=== PATIENT | female | born 1950 | race Caucasian/White ===

== ENCOUNTER 2017-06-17 21:48 | Inpatient (IN) | payer MEDICARE, MEDICAID ==
[~2017-06-17] VITALS: Ht 154.9 cm; Wt 67.6 kg
[2017-06-17] MEDS ORDERED: ATEN-171 PO (22:13)
[2017-06-17] MEDS ORDERED: MELA10TA3 PO (22:13)
[2017-06-17] MEDS ORDERED: HYDR5TAB PO (22:13)
[2017-06-17] MEDS ORDERED: METF500T6 PO (22:13)
[2017-06-17] MEDS ORDERED: MAGN100T6 PO (22:13)
[2017-06-17] MEDS ORDERED: METO200T49 PO (22:13)
[2017-06-17] MEDS ORDERED: VITAMIN D PO (22:13)
[2017-06-17] MEDS ORDERED: LEVO100T10 PO (22:13)
[2017-06-17] MEDS ORDERED: LORA1TAB PO (22:13)
[2017-06-17] MEDS ORDERED: AMIT10TA6 PO (22:13)
[2017-06-17] MEDS ORDERED: NAPR-1009 PO (22:13)
[2017-06-17] MEDS ORDERED: CYAN100T3 PO (22:13)
[2017-06-17] MEDS ORDERED: GABA-532 PO (22:13)
[2017-06-17] MEDS ORDERED: TRAZ-144 PO (22:13)
[2017-06-17 22:15] VITALS: BP 140/80
[2017-06-17] MEDS ORDERED: MAGNESIUM HYDROXIDE 30 ML LIQUID UDC PO PRN (22:45)
[2017-06-17] MEDS ORDERED: MAG HYDROX/AL HYDROX/SIMETH 30 ML LIQUID UDC PO PRN (22:45)
[2017-06-18] MEDS: LORAZEPAM 0.5 MG TABLET PO PRN ×3 (00:07→23:04)
[2017-06-18] MEDS: TEMAZEPAM 7.5 MG CAPSULE PO PRN ×2 (01:37→21:48)
[2017-06-18] MEDS: ACETAMINOPHEN 325 MG TABLET PO PRN ×2 (01:37→10:58)
[2017-06-18 07:30] VITALS: BP 135/74
[2017-06-18] MEDS ORDERED: NAPROXEN 500 MG TABLET PO PRN (17:00)
[2017-06-18 17:34] VITALS: BP 128/65
[2017-06-18] MEDS ORDERED: METFORMIN HCL 500 MG TABLET PO SCH (18:00)
[2017-06-18 21:56] VITALS: BP 129/69
[2017-06-19 07:33] LABS: BASOPHILS # (AUTO) 0.1 K/uL (0.0-8.0); BASOPHILS % (AUTO) 0.7 % (0.0-2.0); EOSINOPHILS # (AUTO) 0.3 K/uL (0.0-0.7); EOSINOPHILS % (AUTO) 4.7 % (0.0-7.0); HEMATOCRIT 36.9 % (31.2-41.9); HEMOGLOBIN 12.3 g/dL (10.9-14.3); LYMPHOCYTES # (AUTO) 2.5 K/uL (20.0-40.0); LYMPHOCYTES % (AUTO) 33.6 % (20.5-51.5); MEAN CORPUSCULAR HEMOGLOBIN 28.6 uug (24.7-32.8); MEAN CORPUSCULAR HGB CONC 34 g/dL (32.3-35.6); MEAN CORPUSCULAR VOLUME 85.6 fL (75.5-95.3); MONOCYTES # (AUTO) 0.4 K/uL (2.0-10.0); MONOCYTES % (AUTO) 5.8 % (0.0-11.0); NEUTROPHILS # (AUTO) 4.1 K/uL (1.8-8.9); NEUTROPHILS % (AUTO) 55.2 % (38.5-71.5); PLATELET COUNT (AUTO) 247 K/uL (179-408); RED BLOOD CELL COUNT(AUTO) 4.31 MIL/uL (3.63-4.92); WHITE BLOOD COUNT (AUTO) 7.4 K/uL (3.8-11.8)
[2017-06-19 07:51] LABS: BILIRUBIN,TOTAL 0.3 mg/dL (0.2-1.0); CREATININE 0.7 mg/dL (0.6-1.3); MAGNESIUM 2.2 mg/dL (1.8-2.4); PHOSPHOROUS 4.8 mg/dL (2.5-4.9); POTASSIUM 3.8 mmol/L (3.5-5.1)
[2017-06-19] MEDS: LEVOTHYROXINE SODIUM 100 MCG TABLET PO SCH (07:52)
[2017-06-19 07:56] LABS: THYROID STIMULATING HORMONE 1.371 mIU/mL (0.358-3.740)
[2017-06-19 08:02] VITALS: BP 117/69
[2017-06-19] MEDS: GABAPENTIN 100 MG CAPSULE PO SCH (08:20)
[2017-06-19] MEDS: HYDROCORTISONE 10 MG TABLET PO SCH (08:21)
[2017-06-19] MEDS: CYANOCOBALAMIN 100 MCG TABLET PO SCH (08:27)
[2017-06-19] MEDS ORDERED: ATENOLOL 50 MG TABLET PO SCH (09:00)
[2017-06-19] MEDS: LORAZEPAM 0.5 MG TABLET PO PRN ×2 (10:20→18:04)
[2017-06-19] MEDS: SERTRALINE HCL 50 MG TABLET PO SCH (11:42)
[2017-06-19 15:52] VITALS: BP 113/71
[2017-06-19 20:34] VITALS: BP 121/72
[2017-06-19] MEDS: TEMAZEPAM 7.5 MG CAPSULE PO PRN (22:53)
[2017-06-20] MEDS: LORAZEPAM 0.5 MG TABLET PO PRN ×3 (00:15→23:49)
[2017-06-20] MEDS: ACETAMINOPHEN 325 MG TABLET PO PRN (02:54)
[2017-06-20] MEDS: LEVOTHYROXINE SODIUM 100 MCG TABLET PO SCH (06:49)
[2017-06-20 07:30] VITALS: BP 91/45
[2017-06-20] MEDS: GABAPENTIN 100 MG CAPSULE PO SCH (08:32)
[2017-06-20] MEDS: HYDROCORTISONE 10 MG TABLET PO SCH ×2 (08:33→21:00)
[2017-06-20] MEDS: SERTRALINE HCL 50 MG TABLET PO SCH (08:33)
[2017-06-20] MEDS: CYANOCOBALAMIN 100 MCG TABLET PO SCH (08:39)
[2017-06-20] MEDS: GLUCERNA SHAKE 237 ML CAN PO SCH ×2 (14:25→17:00)
[2017-06-20 15:09] VITALS: BP 123/66
[2017-06-20 20:16] VITALS: BP 114/72
[2017-06-21] MEDS: LEVOTHYROXINE SODIUM 100 MCG TABLET PO SCH (06:34)
[2017-06-21 07:30] VITALS: BP 115/66
[2017-06-21] MEDS: GLUCERNA SHAKE 237 ML CAN PO SCH (08:00)
[2017-06-21] MEDS: CYANOCOBALAMIN 100 MCG TABLET PO SCH (09:00)
[2017-06-21] MEDS: GABAPENTIN 100 MG CAPSULE PO SCH (09:01)
[2017-06-21] MEDS: HYDROCORTISONE 10 MG TABLET PO SCH ×2 (09:01→20:13)
[2017-06-21] MEDS: SERTRALINE HCL 50 MG TABLET PO SCH (09:02)
[2017-06-21 15:19] VITALS: BP 112/57
[2017-06-21 20:25] VITALS: BP 106/60
[2017-06-21] MEDS: LORAZEPAM 0.5 MG TABLET PO PRN (22:35)
[2017-06-22] MEDS: ACETAMINOPHEN 325 MG TABLET PO PRN (02:17)
[2017-06-22] MEDS: LEVOTHYROXINE SODIUM 100 MCG TABLET PO SCH (06:06)
[2017-06-22 07:30] VITALS: BP 135/79
[2017-06-22] MEDS: GABAPENTIN 100 MG CAPSULE PO SCH ×2 (08:09→12:49)
[2017-06-22] MEDS: HYDROCORTISONE 10 MG TABLET PO SCH ×2 (08:09→20:13)
[2017-06-22 08:15] LABS: BASOPHILS # (AUTO) 0.1 K/uL (0.0-8.0); BASOPHILS % (AUTO) 0.8 % (0.0-2.0); EOSINOPHILS # (AUTO) 0.1 K/uL (0.0-0.7); EOSINOPHILS % (AUTO) 1.6 % (0.0-7.0); HEMATOCRIT 38.9 % (31.2-41.9); HEMOGLOBIN 13.2 g/dL (10.9-14.3); LYMPHOCYTES # (AUTO) 2.4 K/uL (20.0-40.0); LYMPHOCYTES % (AUTO) 33.9 % (20.5-51.5); MEAN CORPUSCULAR HEMOGLOBIN 29.2 uug (24.7-32.8); MEAN CORPUSCULAR HGB CONC 34 g/dL (32.3-35.6); MEAN CORPUSCULAR VOLUME 85.7 fL (75.5-95.3); MONOCYTES # (AUTO) 0.5 K/uL (2.0-10.0); MONOCYTES % (AUTO) 6.6 % (0.0-11.0); NEUTROPHILS # (AUTO) 4.1 K/uL (1.8-8.9); NEUTROPHILS % (AUTO) 57.1 % (38.5-71.5); PLATELET COUNT (AUTO) 263 K/uL (179-408); RED BLOOD CELL COUNT(AUTO) 4.53 MIL/uL (3.63-4.92); WHITE BLOOD COUNT (AUTO) 7.1 K/uL (3.8-11.8)
[2017-06-22] MEDS: CYANOCOBALAMIN 100 MCG TABLET PO SCH (08:18)
[2017-06-22] MEDS: SERTRALINE HCL 50 MG TABLET PO SCH (08:18)
[2017-06-22 08:59] LABS: BILIRUBIN,TOTAL 0.5 mg/dL (0.2-1.0); CREATININE 0.8 mg/dL (0.6-1.3); MAGNESIUM 2.1 mg/dL (1.8-2.4); PHOSPHOROUS 4.3 mg/dL (2.5-4.9); POTASSIUM 3.6 mmol/L (3.5-5.1); TOTAL PROTEIN, SERUM 7.4 g/dL (6.4-8.2)
[2017-06-22] MEDS: risperiDONE 0.5 MG TABLET PO SCH ×2 (11:23→20:13)
[2017-06-22] MEDS: BENZTROPINE MESYLATE 0.5 MG TABLET PO SCH ×2 (11:23→16:26)
[2017-06-22 15:48] VITALS: BP 98/44
[2017-06-22] MEDS: NYSTATIN SUSPENSION 5 ML LIQUID UDC PO SCH ×2 (17:45→20:14)
[2017-06-22 20:00] VITALS: BP 116/59
[2017-06-22] MEDS: GABAPENTIN 300 MG CAPSULE PO SCH (20:22)
[2017-06-22] MEDS: LORAZEPAM 0.5 MG TABLET PO PRN (22:21)
[2017-06-23] MEDS: TEMAZEPAM 7.5 MG CAPSULE PO PRN (00:30)
[2017-06-23] MEDS: LEVOTHYROXINE SODIUM 100 MCG TABLET PO SCH (06:51)
[2017-06-23 07:30] VITALS: BP 96/50
[2017-06-23] MEDS: NYSTATIN SUSPENSION 5 ML LIQUID UDC PO SCH ×4 (09:23→20:31)
[2017-06-23] MEDS: GABAPENTIN 100 MG CAPSULE PO SCH ×2 (09:24→12:49)
[2017-06-23] MEDS: risperiDONE 0.5 MG TABLET PO SCH ×2 (09:24→20:31)
[2017-06-23] MEDS: BENZTROPINE MESYLATE 0.5 MG TABLET PO SCH ×2 (09:24→16:03)
[2017-06-23] MEDS: HYDROCORTISONE 10 MG TABLET PO SCH ×2 (09:24→20:31)
[2017-06-23 17:19] VITALS: BP 94/55
[2017-06-23 20:08] VITALS: BP 113/70
[2017-06-23] MEDS: GABAPENTIN 300 MG CAPSULE PO SCH (20:31)
[2017-06-24] MEDS: LORAZEPAM 0.5 MG TABLET PO PRN ×2 (00:53→22:53)
[2017-06-24] MEDS: LEVOTHYROXINE SODIUM 100 MCG TABLET PO SCH (06:27)
[2017-06-24 07:30] VITALS: BP 105/58
[2017-06-24] MEDS: GABAPENTIN 100 MG CAPSULE PO SCH ×2 (08:02→12:07)
[2017-06-24] MEDS: HYDROCORTISONE 10 MG TABLET PO SCH ×2 (08:02→21:35)
[2017-06-24] MEDS: BENZTROPINE MESYLATE 0.5 MG TABLET PO SCH ×2 (08:02→16:35)
[2017-06-24] MEDS: risperiDONE 0.5 MG TABLET PO SCH ×2 (08:02→21:36)
[2017-06-24] MEDS: NYSTATIN SUSPENSION 5 ML LIQUID UDC PO SCH ×4 (08:02→21:36)
[2017-06-24 15:44] VITALS: BP 91/50
[2017-06-24 20:53] VITALS: BP 114/69
[2017-06-24] MEDS: GABAPENTIN 300 MG CAPSULE PO SCH (21:36)
[2017-06-25] MEDS: LEVOTHYROXINE SODIUM 100 MCG TABLET PO SCH (06:31)
[2017-06-25 08:11] VITALS: BP 112/53
[2017-06-25] MEDS: BENZTROPINE MESYLATE 0.5 MG TABLET PO SCH ×2 (09:05→16:36)
[2017-06-25] MEDS: HYDROCORTISONE 10 MG TABLET PO SCH ×2 (09:05→20:43)
[2017-06-25] MEDS: risperiDONE 0.5 MG TABLET PO SCH ×2 (09:05→20:43)
[2017-06-25] MEDS: NYSTATIN SUSPENSION 5 ML LIQUID UDC PO SCH ×4 (09:06→20:43)
[2017-06-25] MEDS: GABAPENTIN 100 MG CAPSULE PO SCH ×2 (09:13→13:45)
[2017-06-25] MEDS: GABAPENTIN 300 MG CAPSULE PO SCH (20:43)
[2017-06-25 21:30] VITALS: BP 114/61
[2017-06-25] MEDS: LORAZEPAM 0.5 MG TABLET PO PRN (23:00)
[2017-06-26] MEDS: LEVOTHYROXINE SODIUM 100 MCG TABLET PO SCH (06:16)
[2017-06-26 07:30] VITALS: BP 105/54
[2017-06-26] MEDS: HYDROCORTISONE 10 MG TABLET PO SCH (08:31)
[2017-06-26] MEDS: NYSTATIN SUSPENSION 5 ML LIQUID UDC PO SCH (08:31)
[2017-06-26] MEDS: BENZTROPINE MESYLATE 0.5 MG TABLET PO SCH (08:31)
[2017-06-26] MEDS: GABAPENTIN 100 MG CAPSULE PO SCH (08:31)
[2017-06-26] MEDS: risperiDONE 0.5 MG TABLET PO SCH (08:31)
== END 2017-06-26 11:39 | disposition home or self-care (01) | DRG 885 ==
LOC: ER 21:51 → GPS 22:06
PROVIDERS: ADMIT Psychiatry & Neurology Psychosomatic Medicine; ATTEND Internal Medicine
DX: F25.0 Schizoaffective disorder, bipolar type (principal); F02.80 Dementia in other diseases classified elsewhere, unspecified severity, without behavioral disturbance, psychotic disturbance, mood disturbance, and anxiety; E44.0 Moderate protein-calorie malnutrition; B37.89 Other sites of candidiasis; E27.40 Unspecified adrenocortical insufficiency; G30.9 Alzheimer's disease, unspecified; E11.9 Type 2 diabetes mellitus without complications; E03.9 Hypothyroidism, unspecified; T43.592D Poisoning by other antipsychotics and neuroleptics, intentional self-harm, subsequent encounter; K21.9 Gastro-esophageal reflux disease without esophagitis; R53.82 Chronic fatigue, unspecified; Z90.49 Acquired absence of other specified parts of digestive tract; Z79.84 Long term (current) use of oral hypoglycemic drugs; Z79.899 Other long term (current) drug therapy; K59.09 Other constipation; E78.5 Hyperlipidemia, unspecified; M19.90 Unspecified osteoarthritis, unspecified site; Z68.28 Body mass index [BMI] 28.0-28.9, adult; Z87.01 Personal history of pneumonia (recurrent)
CPT/HCPCS: 36415; 73030; 73060; 83735; 84100; 84443; 85025; A4663